=== PATIENT | male | born 1955 ===

== ENCOUNTER 2018-10-06 09:59 | Emergency (ER) | payer OTHER ==
[~2018-10-06] VITALS: Ht 170.2 cm; Wt 74.4 kg
[2018-10-06] MEDS ORDERED: ATORVASTATIN CA10 MG PO (10:18)
[2018-10-06] MEDS ORDERED: NORVASC10 MG PO (10:19)
[2018-10-06] MEDS ORDERED: HYDROCHLOROTHIA25 MG PO (10:20)
[2018-10-06] MEDS ORDERED: ZESTRIL40 M1 PO (10:20)
[2018-10-06] MEDS ORDERED: VERAPAMIL ER180 MG PO (10:20)
== END 2018-10-06 14:16 | disposition home or self-care (01) ==
LOC: ER 09:59
DX: R04.0 Epistaxis (principal); I10 Essential (primary) hypertension